=== PATIENT | female | born 1985 | race Two or more races ===

== ENCOUNTER 2019-10-04 16:34 | Inpatient (IN) | payer OTHER ==
[~2019-10-04] VITALS: Ht 162.6 cm; Wt 82.6 kg
[2019-10-04] MEDS ORDERED: ASCO-352 PO (17:00)
[2019-10-04] MEDS ORDERED: FERR325T24 PO (17:00)
[2019-10-04] MEDS ORDERED: BISA10SU11 RC (17:00)
[2019-10-04] MEDS ORDERED: IV NS 0.9% 1,000 ML BAG IV ONE (17:00)
[2019-10-04] MEDS ORDERED: SENN-261 PO (17:00)
[2019-10-04] MEDS ORDERED: ACET-868 PO (17:00)
[2019-10-04] MEDS ORDERED: AMAN100T PO (17:00)
[2019-10-04] MEDS ORDERED: LEVO100T9 PO (17:00)
[2019-10-04] MEDS ORDERED: MAGN400O6 PO (17:00)
[2019-10-04] MEDS ORDERED: INSU100V7 SQ (17:00)
[2019-10-04] MEDS ORDERED: BLOO-668 IN (17:00)
[2019-10-04] MEDS ORDERED: LACT10SO PO (17:00)
[2019-10-04] MEDS ORDERED: ENOX40DI9 SQ (17:00)
[2019-10-04] MEDS ORDERED: PANT40TA2 PO (17:00)
[2019-10-04] MEDS ORDERED: PRED5TAB PO (17:00)
[2019-10-04] MEDS ORDERED: INSU100V39 SQ (17:00)
[2019-10-04] MEDS ORDERED: POLY17PO4 PO (17:00)
[2019-10-04] MEDS ORDERED: CEFEPIME 1 GM in IV D5W 50 ML IV ONE (17:00)
[2019-10-04] MEDS ORDERED: MIDO10TA PO (17:00)
[2019-10-04] MEDS ORDERED: NYST5ORA PO (17:00)
[2019-10-04] MEDS ORDERED: DOCU-141 PO (17:00)
[2019-10-04] MEDS ORDERED: ACET-2605 PO (17:00)
[2019-10-04] MEDS ORDERED: ESCI10TA PO (17:00)
[2019-10-04] MEDS ORDERED: MULT-24 PO (17:00)
--- NOTE | 2019-10-04 17:00 | NUR ---
[id number] FROM [facility] FOR "HIGH" BLOOD SUGAR, BS 288 ON THE FIELD. PT NON VERBAL, EYES CLOSED, WILL MOAN FOR PAINFUL STIMULI. RR EVEN & UNLABORED. PLACED ON WAFER POLISHING WORKER, ST. PT SEEN & EVAL'D BY DR. VILLAVICENCIO. WILL CONT TO MONITOR.
--- NOTE | 2019-10-04 17:03 | NUR ---
temp 103.1 rectally
[2019-10-04 17:21] LABS: BASOPHILS # (AUTO) 0.1 /CMM (0.0-0.2); BASOPHILS % (AUTO) 0.5 % (0.0-2.0); EOSINOPHILS % (AUTO) 0.2 % (0.0-6.0); HEMATOCRIT 56 % (33-45); HEMOGLOBIN 16.6 g/dL (11.5-14.8); LYMPHOCYTES % (AUTO) 18.2 % (20.0-44.0); MEAN CORPUSCULAR HGB CONC 30 g/dl (31.0-36.0); MEAN CORPUSCULAR VOLUME 99 fL (82-100); MONOCYTES # (AUTO) 1.6 /CMM (0.1-1.30); MONOCYTES % (AUTO) 9.8 % (2.0-12.0); NEUTROPHILS # (AUTO) 11.5 /CMM (1.8-8.9); NEUTROPHILS % (AUTO) 71.3 % (43.0-81.0); PLATELET COUNT (AUTO) 340 /CMM (150-450); WHITE BLOOD COUNT (AUTO) 16.2 K/uL (4.3-11.0)
[2019-10-04] MEDS ORDERED: DESM4VIA SQ (17:33)
[2019-10-04 17:35] LABS: ALANINE AMINOTRANSFERASE 65 U/L (12-78); ALBUMIN 4.2 g/dL (3.4-5.0); ALKALINE PHOSPHATASE 271 U/L (46-116); ASPARTATE AMINOTRANSFERASE 50 U/L (15-37); BILIRUBIN,DIRECT 0.1 mg/dL (0.0-0.2); BILIRUBIN,TOTAL 0.4 mg/dL (0.2-1.0); CALCIUM, SERUM 11.3 mg/dL (8.5-10.1); CARBON DIOXIDE 18 mmol/L (21-32); CHLORIDE 124 mmol/L (98-107); POTASSIUM 4.4 mmol/L (3.5-5.1); TOTAL PROTEIN, SERUM 10.2 g/dL (6.4-8.2); UREA NITROGEN, BLOOD 38 mg/dL (7-18)
[2019-10-04 17:37] LABS: GLUCOSE 377 mg/dL (74-106); SODIUM SERUM 158 mmol/L (136-145)
--- NOTE | 2019-10-04 17:56 | NUR ---
CALLED NURSING SUP FOR TELE BED.
--- NOTE | 2019-10-04 18:17 | NUR ---
BED 114-1
[2019-10-04] MEDS ORDERED: MAGNESIUM HYDROXIDE 30 ML UDC PO PRN ×2 (19:00→19:30)
[2019-10-04] MEDS ORDERED: ACETAMINOPHEN 325 MG TABLET PO PRN ×2 (19:00→19:30)
[2019-10-04 19:11] LABS: APPEARANCE,URINE Clear (CLEAR); BILIRUBIN,URINE Negative (NEGATIVE); BLOOD, URINE Negative Ery/uL (NEGATIVE); COLOR,URINE Yellow (YELLOW); KETONES,URINE Negative (NEGATIVE); LEUKOCYTE ESTERASE ,URINE Negative (NEGATIVE); NITRITE, URINE Negative (NEGATIVE); PH,URINE 5.5 (5.0-8.0); PROTEIN,URINE 100 mg/dl (NEGATIVE); UGLUCOSE Negative (NEGATIVE); UROBILINOGEN,URINE 0.2 EU/dL (0.2)
[2019-10-04 19:14] LABS: BACTERIA,URINE Rare /HPF (None Seen); RBC,URINE NONE SEEN /HPF (0-2); SQUAMOUS EPITHELIAL CELL,UR Few /HPF (None Seen); WBC,URINE NONE SEEN /HPF (0-3)
[2019-10-04] MEDS ORDERED: DEXTROSE 50%-WATER 50 ML DISP.SYRIN IV PRN (19:30)
[2019-10-04] MEDS ORDERED: Z GUARD REMEDY 2 OZ OINT TP PRN (19:30)
[2019-10-04] MEDS ORDERED: MAG HYDROX/AL HYDROX/SIMETH 30 ML UDC PO PRN (19:30)
[2019-10-04] MEDS ORDERED: ACETAMINOPHEN 650 MG/SUPP.RECT RC PRN (19:30)
[2019-10-04] MEDS ORDERED: LACTULOSE 10 G/15 ML UDC (PYXIS) PO PRN (19:30)
[2019-10-04] MEDS ORDERED: ONDANSETRON HCL/PF 4 MG/2 ML VIAL IVP PRN (19:30)
[2019-10-04] MEDS ORDERED: HYDROCODONE/APAP 5/325MG TABLET PO PRN (19:30)
--- NOTE | 2019-10-04 19:54 | NUR ---
REPORT GIVEN TO MARIAMA ROQUE FOR JASON.
--- NOTE | 2019-10-04 20:45 | NUR ---
RN NOTE RECEIVED PT FROM ER VIA [facility] ACCOMPANIED BY 1 RN AND 1 EMT. PT IS NON VERBAL AND ONLY RESPONSIVE TO PAINFUL STIMULI. PT WITHOUT IV SITE. PT ON 2L OF O2 VIA NC. SKIN INTACT. CASEY CATHETER IN PLACE DRAINING CLEAR YELLOW URINE. VITAL SIGNS TAKEN. HEART RATE 148. VITAL SIGNS TAKEN. SAFETY MEASURES IN PLACE, CALL LIGHT WITHIN REACH, WILL MONITOR PATIENT.
[2019-10-04 21:00] VITALS: BP 114/81
[2019-10-04] MEDS ORDERED: DESMOPRESSIN 4 MCG/ML AMPUL SQ SCH (21:00)
--- NOTE | 2019-10-04 21:10 | NUR ---
RN NOTE UNABLE TO PLACE PERIPHERAL IV DUE TO POOR VENOUS ACCESS. PT IS ALSO UNABLE TO TAKE PO MEDICATIONS DUE TO MENTAL STATUS (OBTUNDED). PAGED DR. TREADWELL.
--- NOTE | 2019-10-04 21:12 | NUR ---
RN NOTE DR. TREADWELL CALLED BACK. GAVE UPDATE REGARDING PT. PER MD, OKAY TO INSERT IV IN BILATERAL LOWER EXTREMETIES. WITH ORDER TO DO 12 LEAD EKG. MD ALSO OKAY FOR MIDLINE INSERTION IF NEEDED AT A LATER TIME. NOTIFIED MD ABOUT PO MEDICATIONS DUE AT THIS TIME. MD STATES IT IS OKAY NOT TO ADMINISTER AT THIS TIME DUE TO PATIENT BEING UNABLE TO TOLERATE PO MEDICATIONS AND NG INSERTION. ORDERS NOTED AND CARRIED OUT.
--- NOTE | 2019-10-04 21:41 | NUR ---
RN NOTE DR. TREADWELL MADE AWARE OF LACTIC ACID LEVEL 2.9. PT IS ALREADY ON 1/2NS ! 100ML/HOUR. NO NEW ORDERS GIVEN.
[2019-10-04 22:00] VITALS: BP 114/81
[2019-10-04] MEDS: SENNOSIDES 8.6 MG TABLET PO SCH (22:00)
[2019-10-04] MEDS: predniSONE 5 MG TABLET PO SCH (22:00)
[2019-10-04] MEDS: AMANTADINE HCL 100 MG CAPSULE PO SCH (22:00)
[2019-10-04] MEDS: MIDODRINE HCL (5MG) 5 MG TABLET PO SCH (22:00)
[2019-10-04] MEDS: IV 1/2NS 1000 ML 1,000 ML IV SCH (22:13)
[2019-10-04] MEDS: LEVOFLOXACIN 500 MG /D5W 100ML 500 MG in PREMIX 1 EA IV SCH (22:13)
[2019-10-04] MEDS: *INSULIN REGULAR(HUMULIN R)HUM 100 UNIT/ML VIAL SQ PRN (22:26)
[2019-10-04] MEDS: INSULIN GLARGINE, 100 UNIT/ML CARTRIDGE SQ SCH (22:28)
[2019-10-04] MEDS: BLOOD SUGAR DIAGNOSTIC 1 EACH STRIP VI SCH (22:28)
--- NOTE | 2019-10-04 22:59 | NUR ---
MARIAMA NOTE 12 LEAD EKG RESULTED SHOWING SINUS TACHYCARDIA. DR. TREADWELL MADE AWARE. Addendum: 10/05/19 at 0013 by MYA JESSICA RN NO NEW ORDERS GIVEN.
--- NOTE | 2019-10-04 23:08 | NUR ---
RN NOTE PER DR. TREADWELL, ADMINISTERED TYLENOL SUPPOSITORY FOR HIGH TEMP AND APPLIED COOLING MEASURES. WILL CONTINUE TO MONITOR.
[2019-10-05] VITALS (7 sets, daily range): BP systolic 104–116; BP diastolic 70–82
[2019-10-05] MEDS: IV 1/2NS 1000 ML 1,000 ML IV SCH (04:30)
[2019-10-05 06:22] LABS: BASOPHILS # (AUTO) 0.1 /CMM (0.0-0.2); BASOPHILS % (AUTO) 0.6 % (0.0-2.0); EOSINOPHILS % (AUTO) 0.2 % (0.0-6.0); HEMATOCRIT 48 % (33-45); HEMOGLOBIN 14.6 g/dL (11.5-14.8); LYMPHOCYTES # (AUTO) 3.2 /CMM (0.8-4.8); LYMPHOCYTES % (AUTO) 22.3 % (20.0-44.0); MEAN CORPUSCULAR HGB CONC 30 g/dl (31.0-36.0); MEAN CORPUSCULAR VOLUME 97 fL (82-100); MONOCYTES # (AUTO) 1.7 /CMM (0.1-1.30); MONOCYTES % (AUTO) 12.1 % (2.0-12.0); NEUTROPHILS # (AUTO) 9.3 /CMM (1.8-8.9); NEUTROPHILS % (AUTO) 64.8 % (43.0-81.0); PLATELET COUNT (AUTO) 310 /CMM (150-450); WHITE BLOOD COUNT (AUTO) 14.3 K/uL (4.3-11.0)
--- NOTE | 2019-10-05 06:42 | NUR ---
RN CLOSING NOTE PT IS MORE PHYSICALLY RESPONSIVE. ABLE TO OPEN EYES BUT CONTINUES TO BE NON VERBAL. PT IS SINUS TACHY ON MONITOR WITH CURRENT HEART RATE OF 119. 24G IV ON RIGHT UPPER ARM INFUSING WITH 0.45% NS @ 100ML/HOUR ORDERED. IV SITE PATENT WITHOUT COMPLICATIONS NOTED. ON 2 L OF O2 VIA NC WITH 02 SATURATION OF 97%. AFEBRILE AT THIS TIME. CASEY CATHETER PATENT AND IN PLACE DRAINING CLEAR YELLOW URINE. SAFETY MEASURES IN PLACE, WILL ENDORSE TO MORNING RN FOR CONTINUATION OF CARE.
[2019-10-05 06:51] LABS: CALCIUM, SERUM 9.7 mg/dL (8.5-10.1); CREATININE 1.8 mg/dL (0.6-1.3); MAGNESIUM 2.5 mg/dL (1.8-2.4); POTASSIUM 3.4 mmol/L (3.5-5.1)
--- NOTE | 2019-10-05 07:02 | NUR ---
RN NOTE RECEIVED ALERT FOR CRITICAL LAB VALUE. SODIUM 161. BLOOD GLUCOSE 316. PAGED UC CEIN.
--- NOTE | 2019-10-05 07:19 | NUR ---
RN NOTE AWAITING CALL BACK FROM MD. SANDERS TO MARIAMA RAYGOZA FOR CONTINUATION OF CARE.
--- NOTE | 2019-10-05 07:20 | NUR ---
RN OPENING NOTE: Received patient in bed and obtunded. Isolation precaution in place to R/O covid. On cont. o2 via NC @ 2lpm being tolerated well. No SOB and not in resp. distress. Tele monitor showing sinus tachycardia in the 120s, EKG was done on previous shift with result showing sinus tachycardia. Edema noted on patient. IV site clean, dry, patent and intact. Iv infusion on 02/14 NS @ 100mls/hr being tolerated well. Simpson catheter in place and draining yellow urine. Currently on NPO status until swallow eval is done. No pain noted on patient. Call light in reach. Bed locked, low and at semi-lopez's position. Safety ensured and observed. Side rails up x3. Will continue to monitor.
[2019-10-05] MEDS: LEVOTHYROXINE SODIUM 100 MCG TABLET PO SCH (07:30)
[2019-10-05] MEDS: PANTOPRAZOLE 40 MG TABLET.DR PO SCH (07:30)
[2019-10-05] MEDS ORDERED: IV 1/2NS 1000 ML 1,000 ML IV PRN (08:26)
[2019-10-05] MEDS: DOCUSATE SODIUM 100 MG CAPSULE PO SCH (09:00)
[2019-10-05] MEDS: ASCORBIC ACID 500 MG TABLET PO SCH (09:00)
[2019-10-05] MEDS ORDERED: NYSTATIN SUSP 100,000 U/ML BOTTLE PO SCH (09:00)
[2019-10-05] MEDS: predniSONE 5 MG TABLET PO SCH (09:00)
[2019-10-05] MEDS: ESCITALOPRAM OXALATE (10 MG) 10 MG TABLET PO SCH (09:00)
[2019-10-05] MEDS: FERROUS SULFATE (325 MG) 325 MG/TAB TABLET PO SCH (09:00)
[2019-10-05] MEDS: AMANTADINE HCL 100 MG CAPSULE PO SCH ×2 (09:00→20:22)
[2019-10-05] MEDS: MIDODRINE HCL (5MG) 5 MG TABLET PO SCH ×3 (09:00→16:44)
[2019-10-05] MEDS: BLOOD SUGAR DIAGNOSTIC 1 EACH STRIP VI SCH ×4 (09:00→21:02)
[2019-10-05] MEDS: MULTIVITAMINS,THERAGRAN 1 UDTAB TABLET PO SCH (09:00)
[2019-10-05] MEDS: INSULIN GLARGINE, 100 UNIT/ML CARTRIDGE SQ SCH ×2 (09:00→21:00)
[2019-10-05] MEDS: POLYETHYLENE GLYCOL 3350 17 GM POWD.PACK PO SCH (09:00)
[2019-10-05] MEDS: ENOXAPARIN SODIUM 40 MG/0.4 ML DISP.SYRIN SQ SCH (10:00)
--- NOTE | 2019-10-05 10:00 | NUR ---
rn note: informed Dr. Guzman about patient's failed tolerance to food and medication administration. She was put on NPO on previous shift with swallow eval to be done. Patient generally obtunded/lethargic. AM blood sugar was 305 was due Insulin via Sliding scale and scheduled lantus q12. Dr. Guzman ordered to hold Lantus dose for now.
[2019-10-05] MEDS ORDERED: IV NS 0.9% 1,000 ML IV PRN (10:01)
[2019-10-05] MEDS: INSULIN REGULAR, HUMAN 100 UNIT/ML 3 ML VIAL SQ PRN ×3 (10:22→17:43)
[2019-10-05] MEDS ORDERED: POTASSIUM CL. PREMIX PERIPHER. 50 ML IV SCH (12:00)
[2019-10-05] MEDS: DESMOPRESSIN 4 MCG/ML AMPUL SQ SCH ×2 (12:16→20:10)
[2019-10-05] MEDS: IV 1/2NS 1000 ML 1,000 ML IV PRN (13:00)
[2019-10-05] MEDS: NYSTATIN (PYXIS) 500,000 UNIT/5 ML ORAL.SUSP PO SCH ×2 (13:33→16:44)
[2019-10-05] MEDS: HYDROCORTISONE SOD SUCCINATE 100 MG/2 ML VIAL IV SCH ×2 (13:34→20:10)
--- NOTE | 2019-10-05 13:40 | NUR ---
patient covid negative per md ok to noncovid floor ,nursing sup made aware,awaits non covid room
--- NOTE | 2019-10-05 18:30 | NUR ---
TELE/RN NOTES Patient received in the unit, will endorse to rn night nurse for continuity of care.
--- NOTE | 2019-10-05 18:30 | NUR ---
furnace process supervisor note: Patient transferred to [facility] and received by MARIAMA Venegas. Patient remains in stable condition.
--- NOTE | 2019-10-05 20:00 | NUR ---
MS RN OPENING NOTES RECEIVED PATIENT IN BED, OBTUNDED, LEGALLY BLIND, O2 @ 2LPM VIA NASAL CANNULA, UNLABORED BREATHING, NO SIGNS OF RESPIRATORY DISTRESS, JEREMY #24 SL, LAC MIDLINE WITH 1/2 NS @ 125ML/HR, CASEY CATH ATTACHED WITH YELLOWISH COLORED URINE, SIDE RAILS UP.
[2019-10-05] MEDS: LEVOFLOXACIN 500 MG /D5W 100ML 500 MG in PREMIX 1 EA IV SCH (20:10)
--- NOTE | 2019-10-05 21:05 | NUR ---
MS RN NOTES PATIENT'S BLOOD SUGAR IS 226MG/DL. REFERRED TO MY CHARGE NURSE FOR ADVICE. HOLD INSULIN HS FOR NOW.
[2019-10-05] MEDS: SENNOSIDES 8.6 MG TABLET PO SCH (21:44)
--- NOTE | 2019-10-05 22:30 | NUR ---
MS RN NOTES PO MEDS NOT GIVEN. PATIENT IS ON NPO FOR SWALLOW EVAL TOMORROW AM. HOLD LANTUS PER DR. WOODRUFF PENDING SWALLOW EVAL RESULT.
[2019-10-06] VITALS: BP 96/64
[2019-10-06] MEDS: IV 1/2NS 1000 ML 1,000 ML IV PRN ×3 (02:39→20:58)
[2019-10-06 04:02] VITALS: BP 111/72
[2019-10-06] MEDS: HYDROCORTISONE SOD SUCCINATE 100 MG/2 ML VIAL IV SCH ×3 (04:09→20:58)
--- NOTE | 2019-10-06 04:40 | NUR ---
MS RN NOTES DVT PUMP ORDERED AND PLACED ON PATIENT'S BOTH LEGS.
[2019-10-06] MEDS: BLOOD SUGAR DIAGNOSTIC 1 EACH STRIP VI SCH ×4 (06:18→21:44)
--- NOTE | 2019-10-06 06:23 | NUR ---
MS RN NOTES BLOOD SUGAR 213MG/DL TAKEN.
[2019-10-06] MEDS: INSULIN REGULAR, HUMAN 100 UNIT/ML 3 ML VIAL SQ PRN ×3 (06:32→17:57)
--- NOTE | 2019-10-06 06:33 | NUR ---
MS RN NOTES INSULIN ON HOLD. PATIENT IS ON NPO FOR SWALLOW EVAL. INFORMED CHARGE NURSE OF THE RESULT.
--- NOTE | 2019-10-06 06:34 | NUR ---
MS RN CLOSING NOTES ENDORSED PATIENT IN BED, OBTUNDED, LEGALLY BLIND, SOMETIMES RESPOND TO TOUCH, O2 @ 2LPM VIA NASAL CANNULA, UNLABORED BREATHING, NO SIGNS OF RESPIRATORY DISTRESS, JEREMY #24 SL, LAC MIDLINE WITH 1/2 NS @ 125ML/HR, CASEY CATH ATTACHED WITH YELLOWISH COLORED URINE, DUE MEDS GIVEN, SIDE RAILS UP FOR SAFETY.
[2019-10-06 06:56] LABS: BASOPHILS % (AUTO) 0.2 % (0.0-2.0); HEMATOCRIT 40 % (33-45); LYMPHOCYTES % (AUTO) 9.4 % (20.0-44.0); MEAN CORPUSCULAR HGB CONC 30 g/dl (31.0-36.0); MEAN CORPUSCULAR VOLUME 97 fL (82-100); MONOCYTES # (AUTO) 0.4 /CMM (0.1-1.30); MONOCYTES % (AUTO) 4.2 % (2.0-12.0); NEUTROPHILS % (AUTO) 86.2 % (43.0-81.0); PLATELET COUNT (AUTO) 192 /CMM (150-450); WHITE BLOOD COUNT (AUTO) 10.5 K/uL (4.3-11.0)
--- NOTE | 2019-10-06 07:07 | NUR ---
FUR FINISHER OPENING NOTE RECEIVED PT RESTING IN BED AT THIS TIME. NON VERBAL, LEGALLY BLIND, NO SOB NOTED, NO S/S OF ANY ACUTE DISTRESS NOTED. NO C/O PAIN AT THIS TIME. PT ON OXYGEN 2LPM VIA NC AND SATURATING AT 100%. RESPIRATIONS ARE EVEN AND UNLABORED WITH EQUAL RISE AND FALL IN CHEST. PT ON EXTERNAL TELE OPERATIONS REPRESENTATIVE READING SR 73. LAC MIDLINE NOTED, IV ACCESS NOTED IN JEREMY G# 24, BOTH PATENT, INTACT AND FLUSHING WELL. CASEY CATHETER IN PLACE, DRAINING TO GRAVITY CLEAR YELLOW URINE OUTPUT. ASPIRATION AND SAFETY PRECAUTION IN PLACE AND MAINTAINED AT ALL TIMES. BED IN LOWEST LOCKED POSITION, HOB ELEVATED, RAILS UP X 2, CALL LIGHT WITHIN REACH. WILL CONTINUE TO MONITOR
[2019-10-06 07:15] LABS: ALANINE AMINOTRANSFERASE 46 U/L (12-78); ALKALINE PHOSPHATASE 188 U/L (46-116); ASPARTATE AMINOTRANSFERASE 32 U/L (15-37); BILIRUBIN,TOTAL 0.6 mg/dL (0.2-1.0); CALCIUM, SERUM 8.1 mg/dL (8.5-10.1); CARBON DIOXIDE 22 mmol/L (21-32); CHLORIDE 122 mmol/L (98-107); CREATININE 1.4 mg/dL (0.6-1.3); GLUCOSE 221 mg/dL (74-106); MAGNESIUM 1.9 mg/dL (1.8-2.4); POTASSIUM 3.9 mmol/L (3.5-5.1); TOTAL PROTEIN, SERUM 6.6 g/dL (6.4-8.2); UREA NITROGEN, BLOOD 35 mg/dL (7-18)
[2019-10-06 07:20] LABS: SODIUM SERUM 156 mmol/L (136-145)
--- NOTE | 2019-10-06 07:20 | NUR ---
RECEIVED PT'S CRITICAL LAB FOR NA 156 REPORT FROM GOVERNMENT MINISTER NURSE NATALIO. JANIE CHARGE, JANIE MADE AWARE, DOCTOR RANJAN MADE AWARE. AWAITING ORDERS. WILL CONTINUE TO MONITOR
--- NOTE | 2019-10-06 07:21 | NUR ---
MS RN NOTES MELODIE FROM LAB CALLED TO REPORT CRITICAL RESULT SODIUM IS 156 H. ENDORSED TO CORY FOR JASON.
[2019-10-06 07:22] LABS: CREATINE KINASE, TOTAL 31 U/L (26-192); THYROID STIMULATING HORMONE 0.007 uIU/mL (0.358-3.74)
[2019-10-06] MEDS: LEVOTHYROXINE SODIUM 100 MCG TABLET PO SCH (07:30)
[2019-10-06] MEDS: PANTOPRAZOLE 40 MG TABLET.DR PO SCH (07:30)
[2019-10-06 08:00] VITALS: BP 121/66
[2019-10-06] MEDS: INSULIN GLARGINE, 100 UNIT/ML CARTRIDGE SQ SCH ×2 (09:00→21:00)
[2019-10-06] MEDS: DOCUSATE SODIUM 100 MG CAPSULE PO SCH (10:03)
[2019-10-06] MEDS: FERROUS SULFATE (325 MG) 325 MG/TAB TABLET PO SCH (10:03)
[2019-10-06] MEDS: POLYETHYLENE GLYCOL 3350 17 GM POWD.PACK PO SCH (10:04)
[2019-10-06] MEDS: ASCORBIC ACID 500 MG TABLET PO SCH (10:04)
[2019-10-06] MEDS: MULTIVITAMINS,THERAGRAN 1 UDTAB TABLET PO SCH (10:04)
[2019-10-06] MEDS: MIDODRINE HCL (5MG) 5 MG TABLET PO SCH ×3 (10:04→16:49)
[2019-10-06] MEDS: ESCITALOPRAM OXALATE (10 MG) 10 MG TABLET PO SCH (10:04)
[2019-10-06] MEDS: NYSTATIN (PYXIS) 500,000 UNIT/5 ML ORAL.SUSP PO SCH ×3 (10:05→16:50)
[2019-10-06] MEDS: ENOXAPARIN SODIUM 40 MG/0.4 ML DISP.SYRIN SQ SCH (10:06)
--- NOTE | 2019-10-06 10:40 | NUR ---
INITIAL SWALLOW EVAL DONE BY NURSE WITH HOB ELEVATED TO HIGH FOWLERS POSITION. ASPIRATION PRECAUTION IN PLACE, PATIENT TOLERATED CRUSHED MEDS WITH APPLE SAUCE. NO CHOKING, CONGESTION NOTED. WILL CONTINUE TO MONITOR Addendum: 10/06/19 at 1053 by LEW COLEMAN RN INITIAL SWALLOW EVAL DONE BY NURSE WITH HOB ELEVATED TO HIGH FOWLERS POSITION PER JANIE CHARGE NURSE REQUEST. ASPIRATION PRECAUTION IN PLACE, PATIENT TOLERATED CRUSHED MEDS WITH APPLE SAUCE. NO CHOKING, CONGESTION NOTED. WILL CONTINUE TO MONITOR
[2019-10-06] MEDS: AMANTADINE HCL 100 MG CAPSULE PO SCH ×2 (11:43→20:59)
[2019-10-06] MEDS: DESMOPRESSIN 4 MCG/ML AMPUL SQ SCH ×3 (12:26→22:23)
[2019-10-06 16:00] VITALS: BP 93/67
--- NOTE | 2019-10-06 17:40 | NUR ---
PT FOUND ON FLOOR. PT ASSESSED, BREATHING EVEN AND UNLABORED, PRESENT PULSES, GOOD CIRCULATION. NO BRUISES OR SKIN ISSUES NOTED. PT GRIMACES WHEN WRIST ASSESSED. JANIE CHARGE NURSE AND DOCTOR RANJAN MADE AWARE. 1:[address] WILL CONTINUE TO MONITOR
--- NOTE | 2019-10-06 18:50 | NUR ---
MS RN CLOSING NOTES PT AWAKE IN BED AT THIS TIME. PT REMAINED STABLE THROUGHOUT SHIFT. PT KEPT CLEAN AND DRY. ALL CARE, NEEDS, MEDICATION AND TREATMENT ADMINISTERED ANTICIPATED PER ORDER. PT REPOSITIONED Q2HR, PRN AND PER PROTOCOL. CATHETER CARE PROVIDED. ASPIRATION AND SAFETY PRECAUTION IN PLACE. BED IN LOWEST LOCKED POSITION, HOB ELEVATED, RAILS UP X 2, CALL LIGHT WITHIN REACH. WILL ENDORSE TO BOARD LINING MACHINE OPERATOR NURSE FOR JASON
[2019-10-06 18:52] LABS: APPEARANCE,URINE SL CLOUDY (CLEAR); BILIRUBIN,URINE NEGATIVE (NEGATIVE); BLOOD, URINE NEGATIVE Ery/uL (NEGATIVE); COLOR,URINE YELLOW (YELLOW); KETONES,URINE TRACE (NEGATIVE); LEUKOCYTE ESTERASE ,URINE NEGATIVE (NEGATIVE); NITRITE, URINE NEGATIVE (NEGATIVE); PH,URINE 5.5 (5.0-8.0); PROTEIN,URINE 30 mg/dl (NEGATIVE); UGLUCOSE NEGATIVE (NEGATIVE); UROBILINOGEN,URINE 0.2 EU/dL (0.2)
[2019-10-06 19:16] LABS: CREATININE, URINE 306.5 MG/DL (30.0-125.0)
[2019-10-06 19:17] LABS: BACTERIA,URINE None seen /HPF (None Seen); RBC,URINE 0-2 /HPF (0-2); SQUAMOUS EPITHELIAL CELL,UR 0-2 /HPF (None Seen); URIC ACID CRYSTALS,URINE Few /HPF (None Seen); URINE AMORPHOUS URATE Moderate /HPF (None Seen); WBC,URINE 0-2 /HPF (0-3)
--- NOTE | 2019-10-06 19:30 | NUR ---
ms rn opening note received patient in bed. a/ox 1, able to communicate when spoken to in Icelandic. tolerating room air at this time. respirations are even and unlabored. no s/s sob noted. per report patient left wrist pain to touch. in no apparent distress. iv access in shanae midline running 1/2 ns@125ml/hr. iv access also in isatu #24 patent and saline locked. medina catheter is present, draining to gravity, urine is yellow and clear. bed is low and locked, hob elevated in semi fowlers, side rials up x2, call light within reach. will continue to monitor.
[2019-10-06 19:58] LABS: EOSINOPHIL,URINE None Seen
[2019-10-06 20:00] VITALS: BP 95/51
--- NOTE | 2019-10-06 20:41 | NUR ---
ms rn note dr. kee made aware of left wrist pain. telephone order left wrist xray. order read back noted and carried out.
[2019-10-06] MEDS: LEVOFLOXACIN 500 MG /D5W 100ML 500 MG in PREMIX 1 EA IV SCH (20:58)
--- NOTE | 2019-10-06 21:37 | NUR ---
MS RN NOTE FAXED NURSING SOCIAL SERVICES MANAGER ORDER FOR MEDICATION DESMOPRESSIN D/T NOT IN OUR OMNI CELLS ON THE FLOOR. AWAITING FOR MEDICATION.
[2019-10-06] MEDS: SENNOSIDES 8.6 MG TABLET PO SCH (21:44)
[2019-10-06] MEDS ORDERED: DESMOPRESSIN 4 MCG/ML AMPUL ONE (21:56)
--- NOTE | 2019-10-06 22:32 | NUR ---
ms rn note patient refused desmopressin SQ. informed her about risk and benefits. patient continues to refuse. will continue to monitor.
[2019-10-07] MEDS: HYDROCORTISONE SOD SUCCINATE 100 MG/2 ML VIAL IV SCH (05:04)
[2019-10-07] MEDS: IV 1/2NS 1000 ML 1,000 ML IV PRN (06:40)
--- NOTE | 2019-10-07 06:48 | NUR ---
ms rn closing note patient in bed. a/ox 1, communicates in Guyanese. remains tolerating room air. respirations are even and unlabored. no resp distress noted. no distress. iv access maintained in YUMIKO midline running 1/2 ns@125ml/hr. iv access also maintained in JEREMY #24 patent and saline locked. medina catheter is maintained, draining to gravity, urine is yellow and cloudy, output 125ml. bed remains low and locked, hob flat, side rials up x3, call light within reach. will endorse to next shift.
[2019-10-07 07:15] LABS: BASOPHILS % (AUTO) 0.3 % (0.0-2.0); HEMATOCRIT 30 % (33-45); HEMOGLOBIN 9.3 g/dL (11.5-14.8); LYMPHOCYTES # (AUTO) 0.9 /CMM (0.8-4.8); MEAN CORPUSCULAR HGB CONC 31 g/dl (31.0-36.0); MEAN CORPUSCULAR VOLUME 97 fL (82-100); MONOCYTES # (AUTO) 0.2 /CMM (0.1-1.30); MONOCYTES % (AUTO) 3.3 % (2.0-12.0); NEUTROPHILS # (AUTO) 5.6 /CMM (1.8-8.9); NEUTROPHILS % (AUTO) 83.4 % (43.0-81.0); PLATELET COUNT (AUTO) 120 /CMM (150-450); RED BLOOD CELL COUNT(AUTO) 3.11 MIL/uL (4.0-5.2); WHITE BLOOD COUNT (AUTO) 6.7 K/uL (4.3-11.0)
[2019-10-07] MEDS: LEVOTHYROXINE SODIUM 100 MCG TABLET PO SCH (07:30)
[2019-10-07] MEDS: PANTOPRAZOLE 40 MG TABLET.DR PO SCH (07:30)
--- NOTE | 2019-10-07 07:30 | NUR ---
MS/RN Patient received Patient received from data collector. Sleeping soundly at this time, appears in no distress. Sitter at bedside for safety due to previous fall yesterday. IV fluids infusing at 125ml/hr via midline to left AC, no signs of infiltration see. Will continue to monitor and ensure safety.
[2019-10-07] MEDS: BLOOD SUGAR DIAGNOSTIC 1 EACH STRIP VI SCH ×4 (07:36→22:08)
[2019-10-07 07:45] LABS: ALBUMIN 2.9 g/dL (3.4-5.0); BILIRUBIN,TOTAL 0.4 mg/dL (0.2-1.0); CALCIUM, SERUM 8.2 mg/dL (8.5-10.1); MAGNESIUM 1.7 mg/dL (1.8-2.4); PHOSPHORUS 2.7 mg/dL (2.5-4.9); POTASSIUM 3.4 mmol/L (3.5-5.1)
[2019-10-07 08:00] VITALS: BP 107/75
[2019-10-07] MEDS: ESCITALOPRAM OXALATE (10 MG) 10 MG TABLET PO SCH ×2 (08:35→08:45)
[2019-10-07] MEDS: FERROUS SULFATE (325 MG) 325 MG/TAB TABLET PO SCH ×2 (08:35→08:44)
[2019-10-07] MEDS: DOCUSATE SODIUM 100 MG CAPSULE PO SCH ×2 (08:35→08:45)
[2019-10-07] MEDS: NYSTATIN (PYXIS) 500,000 UNIT/5 ML ORAL.SUSP PO SCH ×4 (08:36→16:57)
[2019-10-07] MEDS: POLYETHYLENE GLYCOL 3350 17 GM POWD.PACK PO SCH ×2 (08:36→08:44)
[2019-10-07] MEDS: MIDODRINE HCL (5MG) 5 MG TABLET PO SCH ×4 (08:36→17:01)
[2019-10-07] MEDS: MULTIVITAMINS,THERAGRAN 1 UDTAB TABLET PO SCH ×2 (08:37→08:45)
[2019-10-07] MEDS: ASCORBIC ACID 500 MG TABLET PO SCH ×2 (08:37→08:44)
[2019-10-07] MEDS: AMANTADINE HCL 100 MG CAPSULE PO SCH ×3 (08:37→21:56)
[2019-10-07] MEDS: INSULIN GLARGINE, 100 UNIT/ML CARTRIDGE SQ SCH ×2 (08:38→22:10)
[2019-10-07] MEDS: ENOXAPARIN SODIUM 40 MG/0.4 ML DISP.SYRIN SQ SCH (08:43)
--- NOTE | 2019-10-07 09:29 | NUR ---
MS/RN Medications Morning medications administered.
[2019-10-07] MEDS ORDERED: POTASSIUM CHLORIDE 20 MEQ TAB.PRT.SR PO SCH (09:30)
[2019-10-07] MEDS: Magnesium 1GM/D5W 100ML PREMIX 100 ML IV SCH ×2 (09:54→10:59)
[2019-10-07] MEDS: IV D5W 1,000 ML IV SCH ×2 (09:54→20:21)
[2019-10-07 11:16] LABS: IRON, SERUM 38 ug/dl (50-175); TOTAL IRON BINDING CAPACITY 191 ug/dl (250-450)
[2019-10-07] MEDS: POTASSIUM PHOSPHATE MM 7.5 MMOL in IV NS 0.9% 100 ML IV SCH ×2 (11:24→14:49)
[2019-10-07 12:10] LABS: FERRITIN 79 ng/mL (8-388)
--- NOTE | 2019-10-07 12:32 | NUR ---
MS/RN Speech Therapy Seen by ST - recommendation given to start CCHO diet.
--- NOTE | 2019-10-07 18:22 | NUR ---
MS/RN I&O Incorrect documentation on I&O, patient has medina catheter
--- NOTE | 2019-10-07 18:34 | NUR ---
MS/RN End note Patient remains in stable condition. All medications administered as ordered, no complaints of pain or discomfort. Will endorse to shift commander.
--- NOTE | 2019-10-07 19:30 | NUR ---
ms rn opening note received patient in bed. a/ox 2. tolerating room air. respirations are even and unlabored. no s/s sob noted. no s/s pain at this time. in no apparent distress. iv access in shanae midline running d5w@199ml/hr. iv access also in isatu #24 patent and saline locked. medina catheter is present, draining to gravity, urine is yellow and clear. bed is low and locked, hob elevated in semi fowlers, side rials up x2, call light within reach. will continue to monitor.
[2019-10-07 20:00] VITALS: BP 100/55
[2019-10-07] MEDS: LEVOFLOXACIN 500 MG /D5W 100ML 500 MG in PREMIX 1 EA IV SCH (21:56)
[2019-10-07] MEDS: SENNOSIDES 8.6 MG TABLET PO SCH (21:56)
[2019-10-07] MEDS: DESMOPRESSIN 4 MCG/ML AMPUL SQ SCH (21:57)
[2019-10-07] MEDS: *INSULIN REGULAR(HUMULIN R)HUM 100 UNIT/ML VIAL SQ PRN (22:11)
[2019-10-08] MEDS: IV D5W 1,000 ML IV SCH ×2 (05:50→16:06)
[2019-10-08] MEDS: INSULIN REGULAR, HUMAN 100 UNIT/ML 3 ML VIAL SQ PRN ×2 (06:22→17:20)
[2019-10-08] MEDS: BLOOD SUGAR DIAGNOSTIC 1 EACH STRIP VI SCH ×4 (06:26→21:18)
[2019-10-08] MEDS: PANTOPRAZOLE 40 MG TABLET.DR PO SCH (06:55)
[2019-10-08] MEDS: LEVOTHYROXINE SODIUM 125 MCG TABLET PO SCH (06:55)
[2019-10-08 07:28] LABS: BASOPHILS # (AUTO) 0.1 /CMM (0.0-0.2); BASOPHILS % (AUTO) 1.7 % (0.0-2.0); EOSINOPHILS % (AUTO) 2.3 % (0.0-6.0); HEMATOCRIT 30 % (33-45); HEMOGLOBIN 9.4 g/dL (11.5-14.8); LYMPHOCYTES # (AUTO) 1.6 /CMM (0.8-4.8); LYMPHOCYTES % (AUTO) 35.4 % (20.0-44.0); MEAN CORPUSCULAR HGB CONC 31 g/dl (31.0-36.0); MEAN CORPUSCULAR VOLUME 95 fL (82-100); MONOCYTES # (AUTO) 0.2 /CMM (0.1-1.30); MONOCYTES % (AUTO) 5.3 % (2.0-12.0); NEUTROPHILS # (AUTO) 2.5 /CMM (1.8-8.9); NEUTROPHILS % (AUTO) 55.3 % (43.0-81.0); PLATELET COUNT (AUTO) 126 /CMM (150-450); WHITE BLOOD COUNT (AUTO) 4.6 K/uL (4.3-11.0)
[2019-10-08] MEDS ORDERED: LEVOTHYROXINE SODIUM 100 MCG TABLET PO SCH (07:30)
--- NOTE | 2019-10-08 07:43 | NUR ---
MS RN OPENING NOTES Received patient awake in bed in no acute signs of distress. 1:1 sitter at bedside. A/o x 2. Luxembourgish speaking, denies pain or any discomforts at this time. On room air, respirations are even and unlabored. Midline in place running D5w@100 ml/hr. IV access also in JEREMY g#24 patent and saline locked. Simpson catheter is present, draining clear yellow urine to gravity. Bed is low and locked, HOB elevated, side rails up x2 and call light within reach. Will continue to monitor pt per protocol.
--- NOTE | 2019-10-08 07:46 | NUR ---
ms rn closing note patient in bed. a/ox 2. tolerating room air. no resp distress noted. no c/o pain. no distress. iv access maintained in shanae midline running d5w@100ml/hr. iv access also in isatu #24 patent and saline locked. medina catheter is maintained, draining to gravity, urine is yellow and clear output 675ml. bed remains low and locked, hob elevated in semi fowlers, side rials up x2, call light within reach. will endorse to next shift
[2019-10-08 07:51] LABS: CALCIUM, SERUM 8.4 mg/dL (8.5-10.1); MAGNESIUM 2.4 mg/dL (1.8-2.4); PHOSPHORUS 2.5 mg/dL (2.5-4.9)
[2019-10-08 08:03] LABS: FERRITIN 69 ng/mL (8-388); IRON, SERUM 56 ug/dl (50-175); TOTAL IRON BINDING CAPACITY 224 ug/dl (250-450)
[2019-10-08 08:14] LABS: POTASSIUM 2.8 mmol/L (3.5-5.1)
[2019-10-08] MEDS: POLYETHYLENE GLYCOL 3350 17 GM POWD.PACK PO SCH (08:21)
[2019-10-08] MEDS: ESCITALOPRAM OXALATE (10 MG) 10 MG TABLET PO SCH (08:22)
[2019-10-08] MEDS: NYSTATIN (PYXIS) 500,000 UNIT/5 ML ORAL.SUSP PO SCH ×3 (08:22→16:36)
[2019-10-08] MEDS: HYDROCORTISONE SOD SUCCINATE 100 MG/2 ML VIAL IV SCH (08:22)
[2019-10-08] MEDS: ASCORBIC ACID 500 MG TABLET PO SCH (08:22)
[2019-10-08] MEDS: DOCUSATE SODIUM 100 MG CAPSULE PO SCH (08:22)
[2019-10-08] MEDS: MULTIVITAMINS,THERAGRAN 1 UDTAB TABLET PO SCH (08:22)
[2019-10-08] MEDS: MIDODRINE HCL (5MG) 5 MG TABLET PO SCH ×3 (08:23→16:36)
[2019-10-08] MEDS: ENOXAPARIN SODIUM 40 MG/0.4 ML DISP.SYRIN SQ SCH (08:24)
[2019-10-08] MEDS: AMANTADINE HCL 100 MG CAPSULE PO SCH ×2 (08:27→21:00)
[2019-10-08] MEDS: POTASSIUM CHLORIDE 20 MEQ TAB.PRT.SR PO SCH ×5 (09:24→14:16)
--- NOTE | 2019-10-08 09:24 | NUR ---
RN NOTES RECEIVED CALL FROM LAB THAT PT HAD LOW LEVEL POTASSIUM 2.8. LEFT MESSAGE TO DR WOODRUFF REGARDING RESULTS. DR BARGER ON UNIT AND ORDERED TO GIVE PT KDUR 20 MEQ X 5DOSES. WILL CARRY OUT ORDER AND CONTINUE TO MONITOR PT.
[2019-10-08] MEDS: INSULIN GLARGINE, 100 UNIT/ML CARTRIDGE SQ SCH ×2 (09:25→21:21)
[2019-10-08] MEDS: DESMOPRESSIN 4 MCG/ML AMPUL SQ SCH ×2 (09:31→21:00)
[2019-10-08 10:12] VITALS: BP_SYST 110; BP_SYST 96; BP_DIAS 62; BP_DIAS 74
[2019-10-08] MEDS: *INSULIN REGULAR(HUMULIN R)HUM 100 UNIT/ML VIAL SQ PRN ×2 (11:37→21:24)
[2019-10-08 16:00] VITALS: BP 101/68
--- NOTE | 2019-10-08 17:43 | NUR ---
RN NOTES URINE SPECIMEN AND STOOL SPECIMEN #1 COLLECTED. CALLED LAB TO PICK-UP BOTH SPECIMENS. FROM [facility].
--- NOTE | 2019-10-08 18:36 | NUR ---
MS RN CLOSING NOTES Patient in bed awake and lying at semi-lopez's. 1:1 sitter at bedside. A/o x 2-3. Wolof speaking. On room air, respirations are even and unlabored, no SOb noted throughout the day. Midline in place with IVF of D5w@100 ml/hr. infusing well. IV SL on JEREMY g#24 intact and patent. Simpson catheter is present, draining clear yellow urine to gravity, Simpson care done. Safety measures kept in place: Bed is low and locked, HOB KEPT elevated, side rails up x2 and call light within reach. All needs and care provided well. Will endorse to assistant shift supervisor nurse for rodrigo.
--- NOTE | 2019-10-08 19:10 | NUR ---
RN jilliansur opening notes Pt is resting in bed comfortably. Pt is alert and orientedX2 with episode of confusion. Pt speaks Finnish and able to make needs known. Respiration is normal. No SOB. No S/S of distress noted. Sitter at the bedside. LAC midline is clean, intact and infusing well D5W@ 100ml/hr. JEREMY # 24 is clean, intact and patent. Simpson cath is intact and draining yellow urine. Safety precautions is maintained. Bed at low position, brakes locked, HOB elevated, side rails upX3 and call light is within reach. Will continue to monitor.
[2019-10-08 19:20] LABS: URINE SODIUM, RANDOM 32 mmol/l (40-220)
[2019-10-08 19:26] LABS: OCCULT BLOOD STOOL NEGATIVE (NEGATIVE); OSMOLALITY,URINE 875 mOS/kg (340-1090)
[2019-10-08 20:00] VITALS: BP 95/55
[2019-10-08] MEDS ORDERED: LEVOFLOXACIN (500MG) 500 MG TABLET PO SCH (21:00)
[2019-10-08] MEDS: SENNOSIDES 8.6 MG TABLET PO SCH (21:08)
[2019-10-09] MEDS: IV D5W 1,000 ML IV SCH ×2 (01:05→12:48)
[2019-10-09] MEDS: BLOOD SUGAR DIAGNOSTIC 1 EACH STRIP VI SCH ×3 (06:30→17:10)
[2019-10-09] MEDS: INSULIN REGULAR, HUMAN 100 UNIT/ML 3 ML VIAL SQ PRN ×3 (06:33→17:10)
[2019-10-09 06:40] LABS: BASOPHILS % (AUTO) 0.5 % (0.0-2.0); EOSINOPHILS % (AUTO) 0.6 % (0.0-6.0); HEMATOCRIT 29 % (33-45); HEMOGLOBIN 9.3 g/dL (11.5-14.8); LYMPHOCYTES # (AUTO) 1.8 /CMM (0.8-4.8); LYMPHOCYTES % (AUTO) 38.7 % (20.0-44.0); MEAN CORPUSCULAR HGB CONC 32 g/dl (31.0-36.0); MEAN CORPUSCULAR VOLUME 94 fL (82-100); MONOCYTES # (AUTO) 0.3 /CMM (0.1-1.30); MONOCYTES % (AUTO) 6.4 % (2.0-12.0); NEUTROPHILS # (AUTO) 2.5 /CMM (1.8-8.9); NEUTROPHILS % (AUTO) 53.8 % (43.0-81.0); PLATELET COUNT (AUTO) 117 /CMM (150-450); RED BLOOD CELL COUNT(AUTO) 3.11 MIL/uL (4.0-5.2); WHITE BLOOD COUNT (AUTO) 4.6 K/uL (4.3-11.0)
--- NOTE | 2019-10-09 06:50 | NUR ---
RN medsurg closing notes Pt is resting in bed comfortably. Pt is alert and orientedX2 with episode of confusion. Respiration is normal. No SOB. No S/S of distress noted. Sitter at the bedside. VS is stable. Afebrile. Routine meds were given as ordered. LAC midline is clean, intact and infusing well D5W@ 100ml/hr. JEREMY # 24 is clean, intact and patent. Simpson cath is intact and draining yellow urine 200 ml. Safety precautions is maintained. Bed at low position, brakes locked, HOB elevated, side rails upX3 and call light is within reach. Will endorse to morning nurse for JASON.
[2019-10-09 06:51] LABS: ALBUMIN 2.8 g/dL (3.4-5.0); BILIRUBIN,TOTAL 0.3 mg/dL (0.2-1.0); CALCIUM, SERUM 8.2 mg/dL (8.5-10.1); CREATININE 0.9 mg/dL (0.6-1.3); MAGNESIUM 2.2 mg/dL (1.8-2.4); PHOSPHORUS 3.4 mg/dL (2.5-4.9); TOTAL PROTEIN, SERUM 5.8 g/dL (6.4-8.2)
--- NOTE | 2019-10-09 07:27 | NUR ---
MS RN opening notes Received patient awake in bed in no acute signs of distress. HOB elevated. Sitter at bedside. A/o x 2-3. Welsh speaking, denies pain or any discomforts at this time. On room air, breathing even and unlabored. YUMIKO Midline in place running D5w@100 ml/hr. IV SL on in JEREMY g#24 intact and patent. Simpson catheter in place, draining clear yellow urine to gravity. Bed is low and locked, side rails up x2 and call light within reach. Will continue to monitor pt accordingly
[2019-10-09] MEDS: PANTOPRAZOLE 40 MG TABLET.DR PO SCH (07:55)
[2019-10-09] MEDS: LEVOTHYROXINE SODIUM 125 MCG TABLET PO SCH (07:55)
[2019-10-09 08:00] VITALS: BP 93/56
[2019-10-09] MEDS: HYDROCORTISONE SOD SUCCINATE 100 MG/2 ML VIAL IV SCH (09:02)
[2019-10-09] MEDS: POLYETHYLENE GLYCOL 3350 17 GM POWD.PACK PO SCH (09:02)
[2019-10-09] MEDS: DOCUSATE SODIUM 100 MG CAPSULE PO SCH (09:03)
[2019-10-09] MEDS: ENOXAPARIN SODIUM 40 MG/0.4 ML DISP.SYRIN SQ SCH (09:03)
[2019-10-09] MEDS: ASCORBIC ACID 500 MG TABLET PO SCH (09:04)
[2019-10-09] MEDS: ESCITALOPRAM OXALATE (10 MG) 10 MG TABLET PO SCH (09:04)
[2019-10-09] MEDS: MULTIVITAMINS,THERAGRAN 1 UDTAB TABLET PO SCH (09:04)
[2019-10-09] MEDS: POTASSIUM CHLORIDE 20 MEQ TAB.PRT.SR PO SCH ×4 (09:04→12:02)
[2019-10-09] MEDS: NYSTATIN (PYXIS) 500,000 UNIT/5 ML ORAL.SUSP PO SCH ×3 (09:04→16:45)
[2019-10-09] MEDS: DESMOPRESSIN 4 MCG/ML AMPUL SQ SCH (09:07)
[2019-10-09] MEDS: AMANTADINE HCL 100 MG CAPSULE PO SCH (09:07)
[2019-10-09] MEDS: MIDODRINE HCL (5MG) 5 MG TABLET PO SCH ×3 (09:09→16:51)
[2019-10-09] MEDS: INSULIN GLARGINE, 100 UNIT/ML CARTRIDGE SQ SCH (09:23)
[2019-10-09 09:30] LABS: BAND % (MANUAL) 1 % (0.0-5.0); EOSINOPHILS % (MANUAL) 3 % (0-4); LYMPHOCYTES % (MANUAL) 33 % (16-48); MONOCYTES % (MANUAL) 8 % (0-11.0); NEUTROPHILS % (MANUAL) 55 (42-76)
[2019-10-09 12:00] VITALS: BP 104/58
--- NOTE | 2019-10-09 12:57 | NUR ---
RN NOTES PT WITH LOW LEVEL POTASSIUM 3.0 TODAY, ADMINISTERED KDUR 20 MEQ TAB X 4DOSES. WILL CONTINUE TO MONITOR PT.
[2019-10-09 13:48] LABS: OCCULT BLOOD STOOL NEGATIVE (NEGATIVE)
[2019-10-09 16:00] VITALS: BP 100/62
--- NOTE | 2019-10-09 16:08 | NUR ---
RN NOTES PT FOR DISCHARGE TODAY TO [facility]( [facility]). CALLED AND REPORT TO CHARGE NURSE JUWAN SOUZA. PT'S HUSBANDS JENNIE MARTIN CALLED X3 TO TEL# [phone] BUT UN-ABLE TO REACH, REED CLEANER UN-ABLE TO CONTACT PT'S TOO.
[2019-10-09 16:51] VITALS: BP 100/62
--- NOTE | 2019-10-09 19:03 | NUR ---
RN DISCHARGED NOTES PT DISCHARGED TO TO [facility]( [facility]) IN STABLE CONDITION. A/O X2, KAZAKH SPEAKING, CONFUSED AT TIMES. ON ROOM AIR, TOLERATING WELL WITH NO SOB NOTED. V/S TAKEN , STABLE AND RECORDED. MIDLINE ON YUMIKO AND PIV ON JEREMY REMOVED, MINIMAL BLEEDING NOTED, APPLIED PRESSURE GAUZED THEN TAPED. CASEY CATH REMOVED W/O PROBLEMS AND PT VOIDED. PT HAS NO BELONGINGS. SKIN IS INTACT. HEALTH TEACHINGS GIVEN TO PT BUT SHE WAS PASSIVE AND CONFUSED. EXIT CARE FOLDER HANDED TO EMT. PT LEFT UNIT VIA [facility] @ 1900 ACCOMPANIED BY 2 EMT'S FROM [facility]. MD AND CHARGE NURSE AWARE OF DISCHARGE.
== END 2019-10-09 19:00 | disposition home or self-care (01) | DRG 871 ==
LOC: ER 16:42 → TELE1 18:29 → TELE 10-05 18:27 → MED 10-06 10:09
PROVIDERS: ADMIT Internal Medicine; ATTEND Internal Medicine
PROC: 05HF33Z Insertion of Infusion Device into Left Cephalic Vein, Percutaneous Approach (ICD-10-PCS; principal; 2019-10-06)
DX: A41.9 Sepsis, unspecified organism (principal); N17.0 Acute kidney failure with tubular necrosis; D68.59 Other primary thrombophilia; E23.0 Hypopituitarism; E87.0 Hyperosmolality and hypernatremia; E27.40 Unspecified adrenocortical insufficiency; K86.1 Other chronic pancreatitis; J98.11 Atelectasis; E86.0 Dehydration; G90.8 Other disorders of autonomic nervous system; E03.9 Hypothyroidism, unspecified; Z95.0 Presence of cardiac pacemaker; Z79.4 Long term (current) use of insulin; Z79.01 Long term (current) use of anticoagulants; H54.7 Unspecified visual loss; Z88.1 Allergy status to other antibiotic agents; Z79.899 Other long term (current) drug therapy; E86.1 Hypovolemia; E87.6 Hypokalemia; Z74.09 Other reduced mobility; R00.1 Bradycardia, unspecified; N13.9 Obstructive and reflux uropathy, unspecified; E83.42 Hypomagnesemia; D44.4 Neoplasm of uncertain behavior of craniopharyngeal duct; E11.65 Type 2 diabetes mellitus with hyperglycemia; D64.9 Anemia, unspecified
CPT/HCPCS: 36415; 71045-TC; 73110; 80048-TC; 80053-TC; 80076-TC; 81000-TC; 82272-TC; 82533; 82550-TC; 82570-TC; 82728-TC; 82962-TC; 83540-TC; 83605-TC; 83735-TC; 83935-TC; 83970; 84100-TC; 84155-TC; 84300-TC; 84439-TC; 84443-TC; 84481; 84484-TC; 84703-TC; 85025-TC; 85730-TC; 87040-TC; 87081-TC; 92611-TC; 93307-TC; A4216; G0378; J0692; J1650; J1720; J1815; J1956; J2597; J3475; J3480; J3490; J7030; J7060; J7070; U0003-CS

== ENCOUNTER 2019-10-21 20:55 | Emergency (ER) | payer OTHER ==
[~2019-10-21] VITALS: Ht 162.6 cm; Wt 54.4 kg
[~2019-10-21 20:55] MED LIST: ACET-2605 PO; ACET-868 PO; AMAN100T PO; ASCO-352 PO; BISA10SU11 RC; BLOO-668 IN; DESM4VIA SQ; DOCU-141 PO; ENOX40DI9 SQ; ESCI10TA PO; FERR325T24 PO; INSU100V39 SQ; INSU100V7 SQ; LACT10SO PO; LEVO100T9 PO; MAGN400O6 PO; MIDO10TA PO; MULT-24 PO; NYST5ORA PO; PANT40TA2 PO; POLY17PO4 PO; PRED5TAB PO; SENN-261 PO
--- NOTE | 2019-10-21 20:58 | NUR ---
PT [id number] FROM [facility] S/P UINWITNESSED FALL. NOTED SKIN TEAR ON FOSTERIOR HEAD. PT AAOX2, VSS, RESPIRATIONS EVEN AND UNLABORED ON RA W/ NAD NOTED. PT CONNECTED TO THE MONITOR AND POX
--- NOTE | 2019-10-21 21:27 | NUR ---
PT TAKEN TO CT
--- NOTE | 2019-10-21 22:31 | NUR ---
ATTEMPTED TO CALL [facility] FOR REPORT. NO ANSWER
--- NOTE | 2019-10-21 22:35 | NUR ---
CALLED [facility] FOR PT'S DISCHARGE.
--- NOTE | 2019-10-21 22:39 | NUR ---
[facility] ETA [id number]
[2019-10-21 23:57] VITALS: BP 111/68
--- NOTE | 2019-10-21 23:57 | NUR ---
REPORT GIVEN TO AMHAMMOND. PT TRANSFERED BACK TO FACILITY.
== END 2019-10-21 23:59 | disposition home or self-care (01) ==
LOC: ER 20:57
DX: S00.01XA Abrasion of scalp, initial encounter (principal); M54.5 Low back pain; R51 Headache; R00.1 Bradycardia, unspecified; E11.9 Type 2 diabetes mellitus without complications; E03.9 Hypothyroidism, unspecified; E23.0 Hypopituitarism; H54.7 Unspecified visual loss; Z95.0 Presence of cardiac pacemaker; Z88.0 Allergy status to penicillin; Z88.1 Allergy status to other antibiotic agents; Z79.4 Long term (current) use of insulin; Z79.899 Other long term (current) drug therapy; W01.198A Fall on same level from slipping, tripping and stumbling with subsequent striking against other object, initial encounter; Y93.89 Activity, other specified; Y92.89 Other specified places as the place of occurrence of the external cause; Y99.8 Other external cause status
CPT/HCPCS: 70450; 72125; 72131; 99285; L0172